=== PATIENT | female | born 1995 | race Caucasian/White ===

== ENCOUNTER 2021-05-27 12:44 | Emergency (ER) | payer OTHER ==
[~2021-05-27] VITALS: Ht 175.3 cm; Wt 158.8 kg
[2021-05-27 12:49] VITALS: BP 141/93
[2021-05-27] MEDS ORDERED: PROPRANOLOL 8080 MG PO (13:05)
[2021-05-27] MEDS ORDERED: ENDOMETRIN100 MG RECTAL (13:05)
[2021-05-27] MEDS ORDERED: COZAAR 25 MG TA25 M1 PO (13:05)
[2021-05-27] MEDS ORDERED: SPIRONOLACTONE50 MG PO (13:05)
[2021-05-27] MEDS ORDERED: ESTRADIOL 1 MG T1 M1 PO (13:05)
== END 2021-05-27 13:18 | disposition home or self-care (01) ==
LOC: ER 12:44
DX: I10 Essential (primary) hypertension (principal); Z76.0 Encounter for issue of repeat prescription